=== PATIENT | female | born 1945 | race Hispanic/Latino ===

== ENCOUNTER 2020-03-26 08:43 | Outpatient (CLI) | payer MEDICARE ==
--- NOTE | 2020-03-26 11:12 | MRI ---
EXAM: MRI left knee PROVIDED CLINICAL HISTORY: Pain COMPARISON: None FINDINGS: The anterior cruciate ligament, posterior cruciate ligament, medial collateral ligament and lateral c ollateral ligamentous complex demonstrate an intact MR appearance, as does the extensor mechanism. The medial and lateral menisci demonstrate no definite evidence for tear. There is a focal full-thickness articular cartilage defect involving the central weightbearing portio ns of the medial femoral condyle centrally, measuring about 8 mm. Evaluation of the patellofemoral articular cartilage is limited due to patient motion on the axial sequence, with articular cartilage irregularity suspected. No large full-thickness defect is apparent. The lateral femorotibial articular cartilage appears preserved. There is increased signal intensity on fluid sensitive sequences in a patchy manner involving the med ial head of gastrocnemius muscle. Regional marrow and muscular signal appear otherwise unremarkable. There is a moderate knee joint effusion with moderate Srinivasan's cyst, which contains some internal debr is. IMPRESSION: 1. Focal articular cartilage defect involving the medial femoral condyle. 2. Findings compatible with low-grade muscular strain involving medial head of gastrocnemius. 3. Moderate knee joint effusion with moderate Srinivasan's cyst.
== END 2020-03-26 08:44 | disposition home or self-care (01) ==
LOC: BICMRI 08:43
PROVIDERS: ATTEND Family Medicine
DX: M25.462 Effusion, left knee (principal); M71.22 Synovial cyst of popliteal space [Baker], left knee